=== PATIENT | female | born 1970 | race Caucasian/White ===

== ENCOUNTER 2016-08-30 18:25 | Emergency (ER) | payer SELFPAY ==
[2016-08-30] MEDS ORDERED: HYDROcodone/Acetaminophen 10/325 mg Tablet ONE (18:55)
[2016-08-30] MEDS ORDERED: Benzonatate 100 MG CAP ONE (18:55)
[2016-08-30] MEDS ORDERED: Azithromycin 250 MG TAB ONE (20:31)
[2016-08-30] MEDS ORDERED: predniSONE 20 MG TAB ONE (20:31)
== END 2016-08-30 20:55 | disposition home or self-care (01) ==
LOC: MADERS 18:25
DX: J20.9 Acute bronchitis, unspecified (principal); I10 Essential (primary) hypertension; E11.9 Type 2 diabetes mellitus without complications; E78.5 Hyperlipidemia, unspecified; F17.210 Nicotine dependence, cigarettes, uncomplicated
CPT/HCPCS: 87081; 87430; 99283; J7506

== ENCOUNTER 2018-03-09 10:35 | Emergency (ER) | payer OTHER, SELFPAY ==
--- NOTE | 2018-03-09 11:28 | RAD ---
RIGHT FOOT 3 VIEWS: Date: 03/09/18 HISTORY: Pain. Injury. COMPARISON: None. FINDINGS: Lisfranc alignment is maintained. Joint spaces preserved. Minimal spurring of the calcaneus at the pl pao aponeurosis and insertion site and Achilles tendon insertion site. Nondisplaced fracture involv ing the proximal aspect of the proximal phalanx of the first digit. There is interarticular extension in the first metatarsophalangeal joint space. IMPRESSION: Fracture involving the first digit as described above. POS: [facility]
== END 2018-03-09 12:10 | disposition home or self-care (01) ==
LOC: MADERS 10:35
DX: S92.414A Nondisplaced fracture of proximal phalanx of right great toe, initial encounter for closed fracture (principal); I10 Essential (primary) hypertension; E11.9 Type 2 diabetes mellitus without complications; E87.1 Hypo-osmolality and hyponatremia; F17.210 Nicotine dependence, cigarettes, uncomplicated; Z79.899 Other long term (current) drug therapy; Z79.4 Long term (current) use of insulin; W22.03XA Walked into furniture, initial encounter

== ENCOUNTER 2018-04-16 13:01 | Emergency (ER) | payer SELFPAY ==
[2018-04-16] MEDS ORDERED: predniSONE 20 MG TAB ONE (13:31)
[2018-04-16 13:40] LABS: Bilirubin Negative (Negative); Blood, Urine Negative (Negative); Clarity Clear (Clear); Glucose, Urine (Dipstick) Negative (Negative); Leukocyte Small (Negative); Nitrite Negative (Negative); Protein, Urine (Dipstick) Negative (Neg-Trace); Urobilinogen 0.2 mg/dL (0.2-1.0); pH, Urine 5.5 (5.0-9.0)
[2018-04-16 13:52] LABS: RBC/HPF 0-3 HPF (0-3)
[2018-04-16 13:55] LABS: Bacteria/HPF Rare-Few HPF (None Seen)
== END 2018-04-16 14:15 | disposition home or self-care (01) ==
LOC: MADERS 13:01
DX: H10.12 Acute atopic conjunctivitis, left eye (principal); N39.0 Urinary tract infection, site not specified; I10 Essential (primary) hypertension; E11.9 Type 2 diabetes mellitus without complications; E87.5 Hyperkalemia; E78.1 Pure hyperglyceridemia; F17.210 Nicotine dependence, cigarettes, uncomplicated
CPT/HCPCS: 81003; 81015; 87077; 87086; 87186; 99283; J7506